=== PATIENT | female | born 1970 | race Caucasian/White ===

== ENCOUNTER 2020-09-18 14:08 | Emergency (ER) | payer MEDICARE, MEDICAID ==
[~2020-09-18] VITALS: Ht 149.9 cm; Wt 45.5 kg
[~2020-09-18 14:08] MED LIST: MULT-1179 PO; NO HOME MEDS; POLY17PO10 PO
[2020-09-18 16:15] VITALS: BP 125/71
== END 2020-09-18 16:44 | disposition home or self-care (01) ==
LOC: ER 14:08
DX: R42 Dizziness and giddiness (principal); R25.2 Cramp and spasm; R53.1 Weakness; H91.90 Unspecified hearing loss, unspecified ear; I25.10 Atherosclerotic heart disease of native coronary artery without angina pectoris; K21.9 Gastro-esophageal reflux disease without esophagitis; Z95.5 Presence of coronary angioplasty implant and graft; Z79.899 Other long term (current) drug therapy
CPT/HCPCS: 93005; 99283

== ENCOUNTER → 2021-01-05 | Outpatient (CLI) | payer MEDICARE, MEDICAID | END | disposition home or self-care (01) | LOC: RAD 11:06 | PROVIDERS: ATTEND Psychiatry & Neurology Neurology | DX: R42 Dizziness and giddiness (principal); R20.2 Paresthesia of skin | CPT/HCPCS: 95816 ==

== ENCOUNTER 2024-08-23 15:40 | Outpatient (CLI) | payer MEDICARE, MEDICAID ==
--- NOTE | 2024-08-24 14:44 | RADIOLOGY REPORT ---
EXAM: CT BONE LENGTH SURVEY DATE OF SERVICE: 08/23/2024 03:51 PM ORDERING PHYSICIAN: ANTONELLA HAGAN DO REASON FOR EXAM: Leg length TECHNIQUE: CT of bilateral lower extremities with stitcher operator view COMPARISON: None FINDINGS: Right lower extremity measures 70.1 cm. Left lower extremity leg length measures 69.6 cm. No acute osseous abnormality identified. Right hip knee ankle angle measures 0.4 degrees. Left hip knee ankle angle measures 1 degree varus, normal. IMPRESSION: 1. Right lower extremity measures 70.1 cm. Left lower extremity leg length measures 69.6 cm. ESS SAFETY ENGINEER ADDENDUM # 1 EXAM: CT BONE LENGTH SURVEY DATE OF SERVICE: 08/23/2024 03:51 PM ORDERING PHYSICIAN: ANTONELLA HAGAN DO REASON FOR EXAM: Leg length TECHNIQUE: CT of bilateral lower extremities with stitcher operator view COMPARISON: None FINDINGS: Right lower extremity measures 70.1 cm. Left lower extremity leg length measures 69.6 cm. No acute osseous abnormality identified. Right hip knee ankle angle measures 0.4 degrees. Left hip knee ankle angle measures 1 degree varus, normal. IMPRESSION: 1. Right lower extremity measures 70.1 cm. Left lower extremity leg length measures 69.6 cm. ESS SAFETY ENGINEER FREDO
== END 2024-08-23 23:59 | disposition home or self-care (01) ==
LOC: RAD 15:40
PROVIDERS: ATTEND Student in an Organized Health Care Education/Training Program
DX: M21.70 Unequal limb length (acquired), unspecified site (principal)
CPT/HCPCS: 77073

== ENCOUNTER 2025-02-05 09:24 | Outpatient (CLI) | payer MEDICARE, MEDICAID ==
--- NOTE | 2025-02-05 17:10 | CARDIOLOGY REPORT ---
APPROVED REPORT EXAM: Comprehensive 2D, Doppler, and color-flow Echocardiogram. Patient Location: OUT-PATIENT Blood Pressure: 119/61 mmHg Heart Rate: 73 bpm Rhythm: SINUS Indications MURMUR Negative Turner: none Previous echo: none 2D Dimensions RVDd 2.1 cm LVOT Diameter 1.77 (1.8-2.4cm) FS (%) 23.3 % SV 25.7 ml M-Mode Dimensions Left Atrium(MM) 2.08 (2.5-4.0cm) IVSd 0.73 (0.7-1.1cm) LVDd 3.77 (4.0-5.6cm) Aortic Root 2.69 (2.2-3.7cm) PWd 0.94 (0.7-1.1cm) Aortic Cusp Exc 1.52 (1.5-2.0cm) IVSs 1.01 cm MV EPSS 0.3 (<0.5cm) LVDs 2.11 (2.0-3.8cm) FS (%) 44 % PWs 1.17 cm ESV(Teich) 14.5 ml LVEF(%) 76 (>50%) Aortic Valve AoV Peak Js. 138.2 cm/s AoV VTI 31.1 cm AO Peak GR. 7.6 mmHg AO Mean GR. 4 mmHg LVOT VTI 24.86 cm LVOT Peak Js. 111.1 cm/s YONNY (VMAX) 1.97 cm2 YONNY (VTI) 1.96 cm2 Mitral Valve MV E Velocity 92.0 cm/s MV DECEL TIME 173 ms MV A Velocity 79.3 cm/s MV PHT 51 ms E/A Ratio 1.2 MVA (PHT) 4.35 cm2 TDI E/Medial E' 8.6 Tricuspid Valve TR P. Velocity 221 cm/s RAP ESTIMATE 10 mmHg TR Peak Gr. 20 mmHg RVSP 30 mmHg Pulmonary Vein S2 Velocity 70.15 cm/s PVa Duration 97 msec LEFT VENTRICLE Normal LV size and wall thickness. Overall systolic function is normal. LVEF is 65-70%. RIGHT VENTRICLE RV is normal size and function. RVSP is estimated at 30 mmHg. ATRIA LA size is normal. AORTIC VALVE Trileaflet AV appears mildly sclerotic without stenosis or insufficiency by color and spectral flow Doppler. MITRAL VALVE Mild MV annular calcification without stenosis. Trace regurgitation by color and spectral flow Doppler. TRICUSPID VALVE TV appears structurally normal with trace regurgitation by color and spectral flow Doppler. PULMONIC VALVE Normal PV without stenosis, physiologic insufficiency by color and spectral flow Doppler. GREAT VESSELS Aortic root is normal in size. The IVC is normal in size and collapses greater than 50% with inspiration. PERICARDIUM Trace anterior pericardial effusion without hemodynamic compromise. Other Information Study Quality: Adequate Conclusion Normal LV size and wall thickness. Overall systolic function is normal. LVEF is 65-70%. RV is normal size and function. RVSP is estimated at 30 mmHg. LA size is normal. Trileaflet AV appears mildly sclerotic without stenosis or insufficiency by color and spectral flow Doppler. Mild MV annular calcification without stenosis. Trace regurgitation by color and spectral flow Doppler. TV appears structurally normal with trace regurgitation by color and spectral flow Doppler. Trace anterior pericardial effusion without hemodynamic compromise.
== END 2025-02-05 23:59 | disposition home or self-care (01) ==
LOC: CARD DIAG 09:24
PROVIDERS: ATTEND Internal Medicine
DX: I08.8 Other rheumatic multiple valve diseases (principal); R01.1 Cardiac murmur, unspecified
CPT/HCPCS: 93306